=== PATIENT | female | born 1980 | race Caucasian/White ===

== ENCOUNTER → 2016-10-30 | Outpatient (CLI) | payer OTHER ==
--- NOTE | 2016-10-30 14:39 | RAD ---
Three-view left foot radiographs 10/30/2016 Clinical history: Left foot pain and bruising. AP, lateral and oblique digital radiographs of the left foot were obtained. An oblique nondisplaced fracture is seen involving the proximal/mid diaphysis of of the proximal phalanx of the left fifth toe. No additional fracture is seen. Impression: Nondisplaced fracture involving the proximal phalanx of the left fifth toe.
== END | disposition home or self-care (01) ==
LOC: RAD 13:25
PROVIDERS: ATTEND Physician Assistant
DX: S92.515A Nondisplaced fracture of proximal phalanx of left lesser toe(s), initial encounter for closed fracture (principal); X58.XXXA Exposure to other specified factors, initial encounter; Y93.89 Activity, other specified; Y92.89 Other specified places as the place of occurrence of the external cause; Y99.8 Other external cause status
CPT/HCPCS: 73630

== ENCOUNTER → 2016-11-12 | Outpatient (CLI) | payer OTHER ==
[2016-11-12 13:04] LABS: BASO # 0.1 x10^3/uL (0.0-0.2); BASO % 1 % (0-3); EOS % 1 % (0-3); HEMATOCRIT 41.7 % (36.0-47.0); HEMOGLOBIN 13.9 g/dL (12.0-15.5); LYMPH % 32 % (24-48); MEAN CORPUSCULAR HEMOGLOBIN 31 pg (25-35); MEAN CORPUSCULAR HGB CONC 33 g/dL (31-37); MEAN CORPUSCULAR VOLUME 92 fL (79-100); MONO % 9 % (0-9); NEUT % 58 % (31-73); PLATELET COUNT 221 x10^3/uL (140-400); RED BLOOD COUNT 4.54 x10^6/uL (3.50-5.40); RED CELL DISTRIBUTION WIDTH 13.4 % (11.5-14.5); WHITE BLOOD COUNT 6.3 x10^3/uL (4.0-11.0)
== END | disposition home or self-care (01) ==
LOC: LAB 12:49
PROVIDERS: ATTEND Psychiatry & Neurology Neurology
DX: G35 Multiple sclerosis (principal)
CPT/HCPCS: 36415; 85027

== ENCOUNTER → 2017-12-08 | Outpatient (CLI) | payer OTHER ==
[2017-12-08 15:42] LABS: ADD MAN DIFF? NO
[2017-12-08 15:46] LABS: BASO % 1 % (0-3); EOS # 0.1 x10^3/uL (0.0-0.7); EOS % 1 % (0-3); HEMATOCRIT 41.3 % (36.0-47.0); HEMOGLOBIN 14.3 g/dL (12.0-15.5); LYMPH # 2.1 x10^3/uL (1.0-4.8); LYMPH % 29 % (24-48); MEAN CORPUSCULAR HEMOGLOBIN 32 pg (25-35); MEAN CORPUSCULAR HGB CONC 35 g/dL (31-37); MEAN CORPUSCULAR VOLUME 92 fL (79-100); MONO # 0.7 x10^3/uL (0.0-1.1); MONO % 10 % (0-9); NEUT # 4.3 x10^3uL (1.8-7.7); NEUT % 60 % (31-73); PLATELET COUNT 241 x10^3/uL (140-400); RED BLOOD COUNT 4.51 x10^6/uL (3.50-5.40); RED CELL DISTRIBUTION WIDTH 13.5 % (11.5-14.5); WHITE BLOOD COUNT 7.2 x10^3/uL (4.0-11.0)
== END | disposition home or self-care (01) ==
LOC: LAB 15:31
DX: I05.0 Rheumatic mitral stenosis (principal)
CPT/HCPCS: 36415; 85025

== ENCOUNTER → 2017-12-20 | Outpatient (CLI) | payer OTHER ==
[2017-12-20] MEDS: GADOBUTROL 7.5 MMOL/7.5 ML VIAL IV (15:25)
== END | disposition home or self-care (01) ==
LOC: KCIC MRI 13:43
DX: G35 Multiple sclerosis (principal)
CPT/HCPCS: 70553; 72156; 72157; A9585

== ENCOUNTER → 2018-06-09 | Outpatient (CLI) | payer OTHER ==
[~2018-06-09] MED LIST: CHOL100013 PO; DIME240C PO; LORA5SOL7 PO
== END | disposition home or self-care (01) ==
LOC: LAB 08:45
DX: Z88.1 Allergy status to other antibiotic agents (principal)
CPT/HCPCS: 87623; 88175

== ENCOUNTER → 2018-12-21 | Outpatient (CLI) | payer OTHER ==
[2018-12-21 15:49] LABS: BASO % 1 % (0-3); EOS % 1 % (0-3); HEMATOCRIT 41.3 % (36.0-47.0); HEMOGLOBIN 13.8 g/dL (12.0-15.5); LYMPH # 1.8 x10^3/uL (1.0-4.8); LYMPH % 27 % (24-48); MEAN CORPUSCULAR HEMOGLOBIN 31 pg (25-35); MEAN CORPUSCULAR HGB CONC 33 g/dL (31-37); MEAN CORPUSCULAR VOLUME 92 fL (79-100); MONO # 0.5 x10^3/uL (0.0-1.1); MONO % 8 % (0-9); NEUT # 4.3 x10^3uL (1.8-7.7); NEUT % 64 % (31-73); PLATELET COUNT 232 x10^3/uL (140-400); RED BLOOD COUNT 4.51 x10^6/uL (3.50-5.40); RED CELL DISTRIBUTION WIDTH 13.4 % (11.5-14.5); WHITE BLOOD COUNT 6.8 x10^3/uL (4.0-11.0)
[2018-12-21 16:09] LABS: DIRECT BILIRUBIN 0.1 mg/dL (0.0-0.2); TOTAL BILIRUBIN 0.4 mg/dL (0.2-1.0)
== END | disposition home or self-care (01) ==
LOC: LAB 15:21
PROVIDERS: ATTEND Psychiatry & Neurology Neurology
DX: G35 Multiple sclerosis (principal)
CPT/HCPCS: 36415; 80076; 85025

== ENCOUNTER → 2020-01-10 | Outpatient (CLI) | payer OTHER ==
[2020-01-10 15:48] LABS: BASO # 0.1 x10^3/uL (0.0-0.2); BASO % 1 % (0-3); EOS # 0.1 x10^3/uL (0.0-0.7); EOS % 1 % (0-3); HEMATOCRIT 41.8 % (36.0-47.0); HEMOGLOBIN 14.1 g/dL (12.0-15.5); LYMPH # 2.1 x10^3/uL (1.0-4.8); LYMPH % 31 % (24-48); MEAN CORPUSCULAR HEMOGLOBIN 31 pg (25-35); MEAN CORPUSCULAR HGB CONC 34 g/dL (31-37); MEAN CORPUSCULAR VOLUME 91 fL (79-100); MONO # 0.6 x10^3/uL (0.0-1.1); MONO % 9 % (0-9); NEUT # 4.1 x10^3/uL (1.8-7.7); NEUT % 59 % (31-73); PLATELET COUNT 258 x10^3/uL (140-400); RED BLOOD COUNT 4.58 x10^6/uL (3.50-5.40); RED CELL DISTRIBUTION WIDTH 13.5 % (11.5-14.5); WHITE BLOOD COUNT 6.9 x10^3/uL (4.0-11.0)
[2020-01-10 16:04] LABS: ALBUMIN/GLOBULIN RATIO 1.3 (1.0-1.7); CALCIUM 8.9 mg/dL (8.5-10.1); GFR 61.4; POTASSIUM 3.7 mmol/L (3.5-5.1); TOTAL BILIRUBIN 0.2 mg/dL (0.2-1.0); TOTAL PROTEIN 7.2 g/dL (6.4-8.2)
== END | disposition home or self-care (01) ==
LOC: LAB 15:08
PROVIDERS: ATTEND Psychiatry & Neurology Neurology
DX: G35 Multiple sclerosis (principal)
CPT/HCPCS: 36415; 80053; 85025

== ENCOUNTER → 2020-01-16 | Outpatient (CLI) | payer OTHER ==
[~2020-01-16] MED LIST changes: +GADOTERATE 7.5 MMOL/15ML VIAL. IVP ONE
--- NOTE | 2020-01-16 10:44 | KCIC ---
BRAIN WO/W CONTRAST History:Reason: FOLLOW UP MS. / Spl. Instructions: 15mL Dotarem / History: Technique: Multiplanar, multi sequential without and with intravenous contrast MR imaging was performed of the brain. Comparison: December 20, 2017 Findings: No acute infarct. No intracranial hemorrhage. No mass effect. No hydrocephalus. A few foci of FLAIR hyperintensities within the subcortical and periventricular white matter, unchanged. No pathologic enhancement. Imaged orbits are unremarkable. Secretions within the left posterior ethmoid air cells. Mastoid air cells are clear. Impression: 1. Mild nonspecific white matter changes, can be seen with demyelinating disease. No new or enhancing lesions. Electronically signed by: Semaj Foster DO (01/16/2020 10:41 AM) [id number]
--- NOTE | 2020-01-16 10:58 | KCIC ---
CERVICAL SPINE WO/W CONTRAST, THORACIC SPINE WO/W CONTRAST History:Reason: FOLLOW UP MS. / Spl. Instructions: 15mL Dotarem / History: Technique: Multiplanar, multi sequential without and with intravenous contrast MR imaging was performed of the cervical spine. Comparison: December 20, 2017 Findings: MRI cervical spine: Normal vertebral body height and alignment. No fracture. Several STIR hyperintense lesions within the cervical cord. Most prominent lesion at the C6 level, unchanged. No new or enhancing lesions. Minimal disc bulge C5-C6. No canal or neuroforaminal narrowing. MR thoracic spine: Normal vertebral body height and alignment. No fracture. T5 vertebral body hemangioma, unchanged. Disc spaces are well-maintained. No canal or neuroforaminal narrowing. No pathologic signal abnormality within the thoracic spinal cord. Impression: 1. Unchanged demyelinating lesions within the cervical spinal cord. No new or enhancing lesions. Electronically signed by: Semaj Foster DO (01/16/2020 10:55 AM) [id number]
== END ==
LOC: KCIC MRI 08:04
PROVIDERS: ATTEND Psychiatry & Neurology Neurology
DX: G37.8 Other specified demyelinating diseases of central nervous system (principal); G54.2 Cervical root disorders, not elsewhere classified
CPT/HCPCS: 70553; 72156; 72157; A9575

== ENCOUNTER → 2020-05-27 | Outpatient (CLI) | payer OTHER ==
[~2020-05-27] MED LIST changes: -GADOTERATE 7.5 MMOL/15ML VIAL. IVP ONE
--- NOTE | 2020-06-02 17:03 | RAD ---
DATE: 05/27/2020 3:22 PM EXAM: MAMMO EILEEN SCREENING BILATERAL HISTORY: Screening COMPARISON: 09/16/2011 Bilateral CC and MLO views of the breasts were performed. Bilateral breast tomosynthesis was performed in CC and MLO projections. This study was interpreted with the benefit of Computerized Aided Detection (CAD). FINDINGS: Breast Density: SCATTERED The breast parenchyma shows scattered fibroglandular densities. Breast parenchyma level B No suspicious masses, microcalcifications or architectural distortion is present to suggest malignancy in either breast. The visualized axillae are unremarkable. IMPRESSION: No mammographic evidence of malignancy. BI-RADS CATEGORY: 1 NEGATIVE RECOMMENDED FOLLOW-UP: 12M 12 MONTH FOLLOW-UP Annual screening mammography is recommended, unless clinically indicated sooner based on symptoms or change in physical exam. PQRS compliance statement: Patient information was entered into a reminder system with a target due date for the next mammogram. Mammography is a sensitive method for finding small breast cancers, but it does not detect them all and is not a substitute for careful clinical examination. A negative mammogram does not negate a clinically suspicious finding and should not result in delay in biopsying a clinically suspicious abnormality. "Our facility is accredited by the [employer] Mammography [employer]."
== END ==
LOC: MAMMO 15:19
PROVIDERS: ATTEND Family Medicine
DX: Z12.31 Encounter for screening mammogram for malignant neoplasm of breast (principal)
CPT/HCPCS: 77063; 77067

== ENCOUNTER 2020-07-01 07:51 | Emergency (ER) | payer OTHER ==
[~2020-07-01] VITALS: Ht 170.2 cm; Wt 75.0 kg
[2020-07-01] MEDS ORDERED: ADENOSINE 6 MG/2 ML VIAL. IV ONE ×2 (07:56→08:15)
[2020-07-01] MEDS ORDERED: IV NORMAL SALINE 1000ML BAG 1,000 ML IV ONE (08:15)
[2020-07-01 08:17] LABS: BASO # 0.1 x10^3/uL (0.0-0.2); BASO % 1 % (0-3); EOS # 0.1 x10^3/uL (0.0-0.7); EOS % 1 % (0-3); HEMATOCRIT 42.8 % (36.0-47.0); HEMOGLOBIN 14.7 g/dL (12.0-15.5); LYMPH # 2.6 x10^3/uL (1.0-4.8); LYMPH % 31 % (24-48); MEAN CORPUSCULAR HEMOGLOBIN 31 pg (25-35); MEAN CORPUSCULAR HGB CONC 34 g/dL (31-37); MEAN CORPUSCULAR VOLUME 91 fL (79-100); MONO # 0.7 x10^3/uL (0.0-1.1); MONO % 9 % (0-9); NEUT # 4.7 x10^3/uL (1.8-7.7); NEUT % 58 % (31-73); PLATELET COUNT 321 x10^3/uL (140-400); RED BLOOD COUNT 4.69 x10^6/uL (3.50-5.40); RED CELL DISTRIBUTION WIDTH 13.3 % (11.5-14.5); WHITE BLOOD COUNT 8.1 x10^3/uL (4.0-11.0)
--- NOTE | 2020-07-01 08:25 | ED.ADGEN ---
General Adult EDM: Chief Complaint: RAPID HEART RATE HPI: HPI: Patient is a 39 year old female coming in for lightheadedness with rapid heart rate. Patient states she was getting a stand up when she felt lightheaded. F elt like her heart was racing. Says she otherwise has been well and has no history of a rapid heartbeat. Has a family but not personal history of atrial fibrillation. Has a history of multiple sclerosis. Denies any recent illness, shortness of breath or chest pain. Denies any alcohol or drug use. Denies any excessive caffeine use, states she usually has a couple of sodas during the day but has not had any caffeine at this morning. Denies any other recent illnesses such as fevers, cough, nausea, vomiting, diarrhea, dysuria. Review of Systems: Review of Systems: Negative except for stated in HPI Current Medications: Current Medications Medications (Trade) Dose Ordered Sig/Kerry Start Time Stop Time Status Last Admin Dose Admin Adenosine (Adenocard) 6 mg 1X ONCE 07/01/20 08:15 07/01/20 08:16 DC 07/01/20 08:03 6 MG Sodium Chloride 1,000 ml @ 1,000 mls/hr 1X ONCE 07/01/20 08:15 07/01/20 09:14 DC 07/01/20 08:01 1,000 MLS/HR Allergies: Allergies: Allergies Coded Allergies Type Severity Reaction Last Updated Verified azithromycin Allergy Intermediate 12/20/17 Yes Physical Exam: PE: Constitutional: Well developed, well nourished, no acute distress, non-toxic appearance. [] HENT: Normocephalic, atraumatic, bilateral external ears normal, oropharynx moist, no oral exudates, nose normal. [] Eyes: PERRLA, EOMI, conjunctiva normal, no discharge. [] Neck: Normal range of motion, no tenderness, supple, no stridor. [] Cardiovascular: Tachycardic in low 200s, regular rhythm Lungs & Thorax: Nonlabored breathing, no respiratory distress or tachypnea Abdomen: Nondistended Skin: Warm, dry, no erythema, no rash. [] No diaphoresis Extremities: No tenderness, no cyanosis, no clubbing, ROM intact, no edema. [] Neurologic: Alert and oriented X 3, normal motor function, normal sensory function, no focal deficits noted. [] Psychologic: Affect normal, judgement normal, mood normal. [] Current Patient Data: Labs: Laboratory Tests Test 07/01/20 07:59 07/01/20 09:00 07/01/20 09:05 White Blood Count 8.1 x10^3/uL (4.0-11.0) Red Blood Count 4.69 x10^6/uL (3.50-5.40) Hemoglobin 14.7 g/dL (12.0-15.5) Hematocrit 42.8 % (36.0-47.0) Mean Corpuscular Volume 91 fL (79-100) Mean Corpuscular Hemoglobin 31 pg (25-35) Mean Corpuscular Hemoglobin Concent 34 g/dL (31-37) Red Cell Distribution Width 13.3 % (11.5-14.5) Platelet Count 321 x10^3/uL (140-400) Neutrophils (%) (Auto) 58 % (31-73) Lymphocytes (%) (Auto) 31 % (24-48) Monocytes (%) (Auto) 9 % (0-9) Eosinophils (%) (Auto) 1 % (0-3) Basophils (%) (Auto) 1 % (0-3) Neutrophils # (Auto) 4.7 x10^3/uL (1.8-7.7) Lymphocytes # (Auto) 2.6 x10^3/uL (1.0-4.8) Monocytes # (Auto) 0.7 x10^3/uL (0.0-1.1) Eosinophils # (Auto) 0.1 x10^3/uL (0.0-0.7) Basophils # (Auto) 0.1 x10^3/uL (0.0-0.2) D-Dimer (Ekllie) < 0.27 ug/mlFEU Sodium Level 138 mmol/L (136-145) Potassium Level 3.8 mmol/L (3.5-5.1) Chloride Level 100 mmol/L (98-107) Carbon Dioxide Level 25 mmol/L (21-32) Anion Gap 13 (6-14) Blood Urea Nitrogen 11 mg/dL (7-20) Creatinine 0.7 mg/dL (0.6-1.0) Estimated GFR (Cockcroft-Gault) 92.7 BUN/Creatinine Ratio 16 (6-20) Glucose Level 116 mg/dL (70-99) H Calcium Level 9.1 mg/dL (8.5-10.1) Magnesium Level 2.1 mg/dL (1.8-2.4) Total Bilirubin 0.4 mg/dL (0.2-1.0) Aspartate Amino Transferase (AST) 20 U/L (15-37) Alanine Aminotransferase (ALT) 21 U/L (14-59) Alkaline Phosphatase 92 U/L (46-116) Troponin I Quantitative < 0.017 ng/mL (0.000-0.055) AG-Hxo-C-Type Natriuretic Peptide 88 pg/mL (0-124) Total Protein 7.2 g/dL (6.4-8.2) Albumin 4.0 g/dL (3.4-5.0) Albumin/Globulin Ratio 1.3 (1.0-1.7) Thyroid Stimulating Hormone (TSH) 3.017 uIU/mL (0.358-3.74) Urine Collection Type Unknown Urine Color Yellow Urine Clarity Clear Urine pH 7.0 (<5.0-8.0) Urine Specific [place] <=1.005 (1.000-1.030) Urine Protein Negative mg/dL (NEG-TRACE) Urine Glucose (UA) Negative mg/dL (NEG) Urine Ketones (Stick) 15 mg/dL (NEG) Urine Blood Trace (NEG) Urine Nitrite Negative (NEG) Urine Bilirubin Negative (NEG) Urine Urobilinogen Dipstick 0.2 mg/dL (0.2 mg/dL) Urine Leukocyte Esterase Moderate (NEG) Urine RBC 6-10 /HPF (0-2) Urine WBC 11-20 /HPF (0-4) Urine Squamous Epithelial Cells Many /LPF Urine Bacteria Moderate /HPF (0-FEW) POC Urine HCG, Qualitative Hcg negative (Negative) Laboratory Tests 07/01/20 07:59 Laboratory Tests 07/01/20 07:59 Vital Signs: Vital Signs Date Time Temp Pulse Resp B/P (MAP) Pulse Ox O2 Delivery O2 Flow Rate FiO2 07/01/20 08:45 97 117/60 (79) 100 Room Air 07/01/20 07:51 97.9 22 97.9 EKG: EK: Supraventricular tachycardia, normal axis 0804: Post cardioversion sinus tachycardia, heart rate 134 bpm, normal axis, no ectopy, no STEMI [] Heart Score: Risk Factors: Risk Factors: DM, Current or recent (<one month) smoker, HTN, HLP, family history of CAD, obesity. Risk Scores: Score 0 - 3: 2.5% MACE over next 6 weeks - Discharge Home Score 4 - 6: 20.3% MACE over next 6 weeks - Admit for Clinical Observation Score 7 - 10: 72.7% MACE over next 6 weeks - Early Invasive Strategies Radiology/Procedures: Radiology/Procedures: Indication: Supraventricular tachycardia Consent: The patient provided verbal consent for this procedure. Pre-Medication: None Procedure: The patient was placed in the supine position and the chest area was exposed. The cardioversion pads were applied in the standard manner and configuration. Several attempts at vagal maneuvers were unsuccessful. the patient was given a dose of 6 mg adenosine IV push. Without a change in electrocardiogram. Second dose of 6 mg adenosine was given rapid IV push with successful cardioversion of SVT to sinus tachycardia. The patient tolerated the procedure well. Complications: none. [][] Course & Med Decision Making: Course & Med Decision Making Pertinent Labs and Imaging studies reviewed. (See chart for details) [] Dragon Disclaimer: Dragon Disclaimer: This electronic medical record was generated, in whole or in part, using a voice recognition dictation system. Departure Departure Impression: Primary Impression: Urinary tract infection Additional Impression: SVT (supraventricular tachycardia) Disposition: 01 DC HOME SELF CARE/HOMELESS Condition: IMPROVED Referrals: [facility] (PCP) Patient Instructions: Supraventricular Tachycardia Scripts Cephalexin (CEPHALEXIN) 500 Mg Capsule 1 CAP PO BID for antibiotic for 5 Days, #10 CAP Prov: VICK AMIN MD 07/01/20 Problem Qualifiers VICK AMIN MD Jul 01, 2020 08:25
--- NOTE | 2020-07-01 08:31 | RAD ---
AP portable chest radiograph 07/01/2020 Clinical History: SVT. An AP erect portable digital radiograph of the chest was obtained. No previous studies are available for comparison. The cardiac and mediastinal silhouettes are within normal limits in size and configuration. No pulmon choco infiltrate is seen. No pleural effusion or pneumothorax is noted. The osseous structures are monty sly intact. IMPRESSION: No acute abnormality is seen. Electronically signed by: Josh Nolan MD (07/01/2020 8:28 AM) [id number]
[2020-07-01 08:40] LABS: CALCIUM 9.1 mg/dL (8.5-10.1); CREATININE 0.7 mg/dL (0.6-1.0); GFR 92.7; POTASSIUM 3.8 mmol/L (3.5-5.1)
[2020-07-01 08:46] LABS: ALBUMIN/GLOBULIN RATIO 1.3 (1.0-1.7); MAGNESIUM 2.1 mg/dL (1.8-2.4); TOTAL BILIRUBIN 0.4 mg/dL (0.2-1.0); TOTAL PROTEIN 7.2 g/dL (6.4-8.2)
[2020-07-01 09:15] LABS: BILIRUBIN,URINE NEGATIVE (NEG); CLARITY,URINE CLEAR; COLOR,URINE YELLOW; NITRITE,URINE NEGATIVE (NEG); PROTEIN,URINE NEGATIVE (NEG-TRACE); UROBILINOGEN,URINE 0.2 mg/dL (0.2 mg/dL)
--- NOTE | 2020-07-01 09:23 | EKG ---
[facility] [address] [place] [address] Test Date: 2020-07-01 Test Time: 07:56:14 Pat Name: JOHN SMALL Department: Room: Gender: F [employer]: : 1980 Requested By: VICK AMIN Order Number: [id number] Reading MD: Measurements Intervals [place] Rate: 227 P: DC: QRS: 38 QRSD: 76 T: 46 QT: 262 QTc: 514 Interpretive Statements SUPRAVENTRICULAR TACHYCARDIA LVH WITH REPOLARIZATION ABNORMALITY ABNORMAL ECG RI6.02 No previous ECG available for comparison
[2020-07-01 09:30] VITALS: BP 101/67
[2020-07-01 09:35] LABS: BACTERIA,URINE MODERATE /HPF (0-FEW)
--- NOTE | 2020-07-01 09:36 | EKG ---
[facility] [address] [place] [address] Test Date: 2020-07-01 Test Time: 08:04:45 Pat Name: JOHN SMALL Department: Room: Gender: F Palletizer: : 1980 Requested By: VICK AMIN Order Number: [id number] Reading MD: Measurements Intervals [place] Rate: 134 P: 61 [place]: 124 QRS: 43 QRSD: 82 T: 58 QT: 280 QTc: 424 Interpretive Statements SINUS TACHYCARDIA OTHERWISE NORMAL ECG RI6.02 Compared to ECG 07/01/2020 07:56:14 Supraventricular tachycardia no longer present Left ventricular hypertrophy no longer present Early repolarization no longer present
[2020-07-01] MEDS ORDERED: CEPH500C PO (09:41)
== END 2020-07-01 09:54 | disposition home or self-care (01) ==
LOC: ER 07:51
DX: I47.1 Supraventricular tachycardia (principal); N39.0 Urinary tract infection, site not specified; Z88.1 Allergy status to other antibiotic agents
CPT/HCPCS: 36415; 71045; 80053; 81001; 81025; 83735; 83880; 84443; 84484; 85025; 85379; 87086; 92960; 93005; 96360; 99285; J0153; J7030

== ENCOUNTER → 2020-08-11 | Outpatient (CLI) | payer OTHER ==
[~2020-08-11] MED LIST changes: +CEPH500C PO
--- NOTE | 2020-08-11 22:20 | CARD ---
MR#: [id number] Date of Study: 08/11/2020 Ordering Physician: DAPHNE DEAN, Referring Physician: DAPHNE DEAN, Tech: Edith Angeles, [facility] APPROVED REPORT EXAM: Two-dimensional and M-mode echocardiogram with Doppler and color Doppler. Other Information Quality : GoodHR: 83bpm INDICATION Julia Re-entry Tachycardia 2D DIMENSIONS Left Atrium(2D)3.2 (1.6-4.0cm)IVSd0.8 (0.7-1.1cm) Aortic Root(2D)2.5 (2.0-3.7cm)LVDd4.7 (3.9-5.9cm) LVOT Diameter2.0 (1.8-2.4cm)PWd0.8 (0.7-1.1cm) LVDs2.6 (2.5-4.0cm)FS (%) 44.8 % SV76.0 mlLVEF(%)76.1 (>50%) Aortic Valve AoV Peak Charly.142.3cm/sAoV VTI27.2cm AO Peak GR.8.2mmHgLVOT Peak Charly.123.4cm/s AO Mean GR.4mmHgAVA (VMAX)2.59cm2 Mitral Valve MV E Binckczx82.0cm/sMV DECEL OIAB980fh MV A Nchjnsjq20.7cm/sE/A Ratio1.2 Pulmonary Valve PV Peak Mnaikzhn19.2cm/s Tricuspid Valve TR P. Fnzvywsy915vp/sRAP UMEOUYSQ8ixEc TR Peak Gr.57cpZrFZVN05zuDv LEFT VENTRICLE The left ventricle is normal size. There is normal left ventricular wall thickness. The left ventricu lar systolic function is normal and the ejection fraction is within normal range. The Ejection Fracti on is 55-60%. There is normal LV segmental wall motion. The left ventricular diastolic function and f illing is normal for age. RIGHT VENTRICLE The right ventricle is normal size. There is normal right ventricular wall thickness. The right ventr icular systolic function is normal. ATRIA The left atrium size is normal. The right atrium size is normal. The interatrial septum is intact wit h no evidence for an atrial septal defect or patent foramen ovale as noted on 2-D or Doppler imaging. AORTIC VALVE The aortic valve is normal in structure and function. Doppler and Color Flow revealed no significant aortic regurgitation. There is no significant aortic valvular stenosis. Calculated aortic valve area is 3.0 cm2 with maximum pressure gradient of 8 mmHg and mean pressure gradient of 4 mmHg. MITRAL VALVE The mitral valve is normal in structure and function. There is no evidence of mitral valve prolapse. There is no mitral valve stenosis. Doppler and Color-flow revealed trace mitral regurgitation. TRICUSPID VALVE The tricuspid valve is normal in structure and function. Doppler and Color Flow revealed trace tricus pid regurgitation with an estimated PAP of 22 mmHg. There is no tricuspid valve stenosis. PULMONIC VALVE The pulmonic valve is not well visualized. Doppler and Color Flow revealed trace pulmonic valvular re gurgitation. There is no pulmonic valvular stenosis. GREAT VESSELS The aortic root is normal in size. The ascending aorta is normal in size. The IVC is normal in size a nd collapses >50% with inspiration. PERICARDIAL EFFUSION There is no evidence of significant pericardial effusion. Critical Notification Critical Value: No <Conclusion> The left ventricular systolic function is normal and the ejection fraction is within normal range. Th e Ejection Fraction is 55-60%. There is normal LV segmental wall motion. Signed by : Daphne Dean, Electronically Approved : 08/11/2020 22:19:43
== END ==
LOC: ECHO 13:46
PROVIDERS: ATTEND Internal Medicine Cardiovascular Disease
DX: I47.1 Supraventricular tachycardia (principal)
CPT/HCPCS: 93306

== ENCOUNTER → 2021-01-06 | Outpatient (CLI) | payer OTHER ==
[2021-01-06 14:48] LABS: BASO % 1 % (0-3); EOS % 1 % (0-3); HEMATOCRIT 40.9 % (36.0-47.0); HEMOGLOBIN 13.9 g/dL (12.0-15.5); LYMPH # 1.7 x10^3/uL (1.0-4.8); LYMPH % 33 % (24-48); MEAN CORPUSCULAR HEMOGLOBIN 31 pg (25-35); MEAN CORPUSCULAR HGB CONC 34 g/dL (31-37); MEAN CORPUSCULAR VOLUME 92 fL (79-100); MONO # 0.4 x10^3/uL (0.0-1.1); MONO % 8 % (0-9); NEUT # 2.9 x10^3/uL (1.8-7.7); NEUT % 58 % (31-73); PLATELET COUNT 244 x10^3/uL (140-400); RED BLOOD COUNT 4.45 x10^6/uL (3.50-5.40); RED CELL DISTRIBUTION WIDTH 13.3 % (11.5-14.5)
[2021-01-06 15:03] LABS: ALBUMIN 4.2 g/dL (3.4-5.0); ALBUMIN/GLOBULIN RATIO 1.4 (1.0-1.7); CREATININE 0.8 mg/dL (0.6-1.0); POTASSIUM 4.1 mmol/L (3.5-5.1); TOTAL BILIRUBIN 0.2 mg/dL (0.2-1.0); TOTAL PROTEIN 7.2 g/dL (6.4-8.2)
== END ==
LOC: LAB 14:12
PROVIDERS: ATTEND Psychiatry & Neurology Neurology
DX: G35 Multiple sclerosis (principal)
CPT/HCPCS: 80053; 85025

== ENCOUNTER → 2021-01-28 | Outpatient (CLI) | payer OTHER ==
[~2021-01-28] MED LIST changes: +GADOTERATE 7.5 MMOL/15ML VIAL. IVP ONE
--- NOTE | 2021-01-28 12:37 | KCIC ---
MRI of the Brain without and with Contrast 01/28/2021 Clinical History: Multiple sclerosis. Technique: Unenhanced T1-weighted and FLAIR sagittal and axial and T2-weighted, gradient echo and dif fusion-weighted axial images of the brain were obtained. After the intravenous administration of 16 c c of Clariscan, enhanced T1-weighted axial, sagittal and coronal images of the brain were obtained. Findings: Comparison study is dated 01/16/2020. The ventricles and sulci are within normal limits in size and configuration. Patchy and several oval- shaped areas of abnormally increased signal intensity are seen within the periventricular, deep and s ubcortical white matter of both cerebral hemispheres on the FLAIR and T2-weighted images consistent w ith the patient's history of multiple sclerosis. These measure 2 mm to 7 mm in greatest diameter. The y are unchanged. No new lesion is seen. No area of abnormal contrast enhancement is noted. No acute parenchymal abnormality is noted. There is no MRI evidence of acute ischemia/infarction. No extra-axial fluid collection is seen. Mild mucosal thickening is seen scattered throughout the paranasal sinuses. There are minimal bilater al mastoid effusions. Normal flow voids are seen within the major vascular structures surrounding the brain parenchyma. IMPRESSION: Findings are again seen consistent with the patient's history of multiple sclerosis, unch anged. No new lesion is seen. No area of abnormal contrast enhancement is noted. Electronically signed by: Josh Nolan MD (01/28/2021 12:35 PM) [id number]
--- NOTE | 2021-01-28 12:59 | KCIC ---
MRI of the cervical and thoracic spine without and with contrast 01/28/2021 CLINICAL HISTORY: Multiple sclerosis. TECHNIQUE: Unenhanced T1-weighted, T2-weighted and inversion recovery sagittal and T1-weighted and T2 -weighted axial images of the cervical and thoracic spine were obtained. Additionally gradient echo a xial images through the cervical spine were obtained. After the intravenous administration of 16 cc o f Clariscan, enhanced T1-weighted sagittal images of the cervical and thoracic spine were obtained. T 2-weighted sagittal images of the cervical, thoracic and lumbar spine were obtained for localization purposes. FINDINGS: Comparison study is dated 01/16/2020 . Minimal lateral curvature of the cervical spine is seen convex to the right. There is mild straighten ing of the normal cervical lordosis. Minimal S-shaped curvature of the thoracolumbar spine is seen. D egenerative signal changes are seen involving all the disks of the cervical and throughout the mid an d lower thoracic spine. A 2.3 cm hemangioma seen involving the T5 vertebral body. A 1 cm hemangioma s een involving the T12 vertebral body. An oval-shaped area of abnormally increased signal intensity is seen on the T2-weighted and inversion recovery images within the central aspect of the cervical spinal cord centered at C6. This measures 6 mm in greatest diameter. It is unchanged. This lesion would be consistent with patient's history of multiple sclerosis. No additional area of abnormal signal intensity is seen involving the cervical s eliceo cord. No area of abnormal signal intensity is seen involving the thoracic spinal cord. No area of abnormal contrast enhancement is seen. On the axial images throughout the cervical disc spaces, very mild degenerative changes are seen cons isting of minimal to mild generalized disc bulges and mild degenerative changes involving the uncover tebral and facet joints. These findings do not result in significant central spinal canal or neural f oraminal stenosis. No significant degenerative changes are seen involving the thoracic spine. No area of significant kyle tral spinal canal or neural foraminal stenosis is seen. IMPRESSION: Signal abnormality is seen involving the cervical spinal cord centered at C6 consistent w ith the patient's history of multiple sclerosis. This is unchanged. No new area of abnormal signal in tensity is seen involving the cervical or thoracic spinal cord. No area of abnormal contrast enhancem ent is seen. Electronically signed by: Josh Nolan MD (01/28/2021 12:56 PM) [id number]
== END ==
LOC: KCIC MRI 08:30
PROVIDERS: ATTEND Psychiatry & Neurology Neurology
DX: G35 Multiple sclerosis (principal)
CPT/HCPCS: 70553; 72156; 72157; A9575

== ENCOUNTER → 2021-06-08 | Outpatient (CLI) | payer OTHER ==
[~2021-06-08] MED LIST changes: -GADOTERATE 7.5 MMOL/15ML VIAL. IVP ONE
--- NOTE | 2021-06-08 17:58 | RAD ---
BILATERAL SCREENING MAMMOGRAM History: Routine screening. Comparison: 05/27/2020. Technique: Routine 2D and 3D tomosynthesis digital mammogram views were obtained bilaterally. Interpr etation was assisted with the use of computer-aided detection. Findings: Breast Tissue Density B : There are scattered areas of fibroglandular density. There are no dominant masses, suspicious microcalcifications, or architectural distortion. IMPRESSION: No mammographic evidence of malignancy. Recommend routine screening mammography in one year. BI-RADS category 1: Negative. Patient information is entered into the reminder system with a target due date for the next screening mammogram. "Our facility is accredited by the [employer] Mammography [employer]." Electronically signed by: JOHN MATOS MD (06/08/2021 5:55 PM) [id number]
== END ==
LOC: MAMMO 08:33
PROVIDERS: ATTEND Obstetrics & Gynecology
DX: Z12.31 Encounter for screening mammogram for malignant neoplasm of breast (principal)
CPT/HCPCS: 77063; 77067